=== PATIENT | male | born 1960 | race Caucasian/White ===

== ENCOUNTER 2018-08-19 11:50 | Outpatient (CLI) | payer MEDICAID ==
[2018-08-19 13:04] LABS: TOTAL PROTEIN,URINE RANDOM 11.7 MG/DL
== END 2018-08-19 23:59 | disposition home or self-care (01) ==
LOC: RAD 11:50
PROVIDERS: ATTEND Internal Medicine Critical Care Medicine
DX: N13.30 Unspecified hydronephrosis (principal); R82.90 Unspecified abnormal findings in urine; R80.9 Proteinuria, unspecified; Z87.891 Personal history of nicotine dependence
CPT/HCPCS: 78707; 82570; 84156; 87088; A9562